=== PATIENT | male | born 1930 | race Caucasian/White ===

== ENCOUNTER 2019-09-30 13:25 | Inpatient (IN) | payer OTHER ==
[~2019-09-30] VITALS: Ht 180.3 cm; Wt 59.0 kg
[2019-09-30 13:28] VITALS: BP 158/74
[2019-09-30 14:21] LABS: URINE BILIRUBIN NEGATIVE (Negative); URINE BLOOD NEGATIVE (Negative); URINE CLARITY CLEAR; URINE COLOR YELLOW; URINE GLUCOSE-RANDOM* NEGATIVE (Negative); URINE KETONES NEGATIVE (Negative); URINE LEUKOCYTES-REFLEX 1+ (Negative); URINE NITRITE-REFLEX NEGATIVE (Negative); URINE PROTEIN (DIPSTICK) NEGATIVE (Negative); URINE UROBILINOGEN 0.2 E.U./dl (0.2-1.0)
[2019-09-30 14:23] LABS: ABSOLUTE NEUTROPHILS 5.5 thou/uL (1.4-8.2); BASOPHILS 0.9 % (0.0-2.0); EOSINOPHILS 0.7 % (0.0-3.0); HEMATOCRIT 36.9 % (42.0-52.0); HEMOGLOBIN 12.2 gm/dL (14.0-18.0); LYMPHOCYTES 12.9 % (24.0-44.0); MCH 32.1 pg (26.0-34.0); MCV 97.3 fL (80.0-100.0); MONOCYTES 5.7 % (1.0-8.0); PLATELET COUNT 308 thou/uL (150-400); POLYS 79.8 % (36.0-66.0); RBC 3.79 mil/uL (4.50-6.00); RDW 12.9 % (10.5-14.5)
[2019-09-30 14:29] LABS: MUCUS 0-3 Light strn/LPF (None Seen); SQUAMOUS 0-3 Few /LPF (0-3)
[2019-09-30 14:30] LABS: BACTERIA-REFLEX 1-9 Few /HPF (None Seen); CALCIUM OXALATE 0-3 Few /LPF (None Seen); CASTS None Seen /LPF (None Seen); URINE RBC 0-2 Rare /HPF (0-2); URINE WBC-REFLEX 6-15 Few /HPF (0-5)
[2019-09-30 14:53] LABS: CALCIUM 8.5 mg/dL (8.5-10.1); CREATININE 1.3 mg/dL (0.7-1.3); POTASSIUM 4.3 mmol/L (3.5-5.1)
[2019-09-30 14:56] LABS: ALBUMIN 2.7 g/dL (3.4-5.0); DIRECT BILIRUBIN < 0.1 mg/dL (<0.1-0.2); SGOT 25 U/L (15-37); SGPT 31 U/L (30-65); TOTAL BILIRUBIN 0.4 mg/dL (<0.1-1.0); TOTAL PROTEIN 7.5 g/dL (6.4-8.2)
[2019-09-30] MEDS ORDERED: TRIPLE ANTIBIOT28 G2 TOP (15:54)
[2019-09-30] MEDS ORDERED: CHOLECALCIFEROL1 GM PO (15:58)
[2019-09-30] MEDS ORDERED: ARICEPT10 M1 PO (16:00)
[2019-09-30] MEDS ORDERED: MUCINEX D ER 61 EACH PO (16:01)
[2019-09-30] MEDS ORDERED: ACIDOPHILUS1 EAC4 PO (16:03)
[2019-09-30] MEDS ORDERED: NAMENDA 10 MG T10 MG PO (16:05)
[2019-09-30] MEDS ORDERED: SEROQUEL 50 MG50 MG PO (16:06)
[2019-09-30] MEDS ORDERED: TRAZODONE HCL50 MG PO (16:08)
[2019-09-30 16:12] VITALS: BP 148/74
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
[2019-09-30 20:00] VITALS: BP 139/67
--- NOTE | 2019-10-01 04:10 | NUR ---
ASSUMED CARE OF PT AT 1900HRS. PT IS ALERT BUT ONLY ORIENTED TO SELF. PT IS UP AD TRI WITH A STEADY GAIT. IV ABX ADMINISTERED. PT DENES PAIN, NAUSEA OR SOA. PT HAD ELEVATED D-DIMER AND BIOENGINEER WAS NOTIFIED. PT WALKED HALLWAYS ALL NIGHT AND TRIED GOING INTO OTHER PT'S ROOMS SEVERAL TIMES. PT DID NOT SLEEP THIS SHIFT. NO AGGRESIVE BEHAVIOR NOTED. PT WAS ABLE TO TAKE ALL PO MEDS. SLEEP AIDS WERE NOT HELPFUL. VSS AND NO S/S OF ACUTE DISTRESS. WILL CONTINUE TO MONITOR.
[2019-10-01 07:01] LABS: FOLIC ACID 17.7 ng/mL (8.6-58.9)
[2019-10-01 08:55] VITALS: BP 133/75
--- NOTE | 2019-10-01 12:34 | EKG ---
[facility] [place] [address] ELECTROCARDIOGRAM REPORT Name: IRVING SAUCEDA Room #: 517-A ADM IN M.R.#: [id number] Admission: 09/30/19 Attend Phys: Facundo العلي DO Discharge: Date of : [birth year] Report #: [id number] THIS REPORT FOR: cc: LENA - No family physician/PCP LENA - No family physician/PCP Nathan Chatman MD [facility] ~ THIS REPORT FOR: //name// [facility] ED Test Date: 2019-09-30 Test Time: 14:10:20 Pat Name: IRVING SAUCEDA Department: Room: [facility] Gender: M Wire Spinner: DANIELLE : [phone] Requested By: Isabel Trotter Order Number: [id number] MD: Nathan Chatman Measurements Intervals Napoleon Rate: 61 P: 62 MI: 140 QRS: 42 QRSD: 86 T: 72 QT: 461 QTc: 465 Interpretive Statements Sinus rhythm Normal tracing No previous ECG available for comparison Electronically Signed On 09-30-2019 17:32:35 MANUFACTURING COORDINATOR by Nathan Chatman [email or web address] <ELECTRONICALLY SIGNED> By: Nathan Chatman MD, FAC 09/30/19 1732 1410 141 Nathan Chatman MD, [facility] /EPI
--- NOTE | 2019-10-01 13:26 | NUR ---
0700 ASSUMED CARE OF PATIENT. PATIENT UP AMBULATING IN GARCÍA AD TRI. 0820 PATIENT CONFUSED. WHEN SENIOR TECHNICAL BUSINESS ANALYST ASKS PATIENT QUESTIONS, PATIENT RESPONDS WITH UNRELATED ANSWER. PATIENT CONFUSED AND ORIENTED TO SELF. PATIENT NOTED TO ENTER IN OTHER PATIENT ROOMS. EASILY REDIRECTED. PATIENT WANDERS HALLS. LUNG SOUNDS CLEAR, BS ACTIVE X4, NO C/O PAIN, DENIES NEEDS. MEDS TAKEN WHOLE WITHOUT DIFICULTY. PATIENT LABILE AND CALM. WILL CONTINUE TO OBSERVE FOR BEHAVIORS.
[2019-10-01 19:41] VITALS: BP 166/77
[2019-10-01 22:59] VITALS: BP 166/77
--- NOTE | 2019-10-01 23:55 | NUR ---
PATIENT HAS BEEN BELLIGERANT AND INTRUSIVE WITH OTHERS. HE HAS BEEN HITTING AND AGGRESSIVE WITH STAFF AND PATIENTS. TRIED MANY TIMES TO REDIRECT AND TO FIND SOMETHING FOR HIM TO DO. SECURITY HAS BEEN CALLED 3 TIMES TO HELP WITH BEHAVIORS. ORDER RECEIVED BY DR ISRAEL FOR HALDOL 5MG IM. THIS WAS GIVEN AND PATIENT BECAME DROWSY AND SLEPT FOR 10 MINUTES. PATIENT REFUSING TO SIT AND JUST WANTS TO WANDER. PATIENT SPOKE WITH TONIGHT TO TRY AND CALM HIM WHICH WORKED FOR A LITTLE BIT. UNABLE TO PUT IV IN TO GIVE IVPB. CALLED AND RECEIVED ORDER FROM Scotty MCGEE NP FOR ROCEPHIN 1GM IM ONETIME. AWAITING FOR PHARMACY TO SEND UP. IVPB WAS NOT ALLOWING US TO SCAN THEM ALSO AND PHARMACY WAS TRYING TO FIGURE THIS OUT. IVPB NOT GIVEN AND WILL GIVE ROCEPHIN IM ONCE OBTAINED AND HELP CALLED TO GIVE INJECTION TO PATIENT. PATIENT STILL PACING HALLS.
--- NOTE | 2019-10-02 00:38 | NUR ---
PHARMACY CALLED THAT ROCEPHIN WAS ON LIFT. MED RETRIEVED AND ROCEPHIN 1GM IM GIVEN IN LEFT HIP WITH OUT ISSUE. PT LAYING DOWN AND TRYING TO REST. WILL CONTINUE TO MONITOR. BED ALARM ON AND BED IN LOW POSITION D/T SEDATION ISSUES AND SAFETY.
--- NOTE | 2019-10-02 03:30 | NUR ---
PATIENT UP WALKING HALLS. WENT AND USED FEMALE PATIENT'S BATHROOM. PT IS WITH PRODUCTIVE CLEAR COUGH. HE KEEPS SPITTING IN SINK AND ON THE NURSE STATION WINDOW SILL. PATIENT PUTTERING AROUND IN HIS ROOM. WILL NOT LAY DOWN. PATIENT NOT REDIRECTABLE. GAVE PATIENT A BOX OF KLEENEXES. PATIENT IN BEDROOM. CONTINUING TO MONITOR.
--- NOTE | 2019-10-02 04:38 | NUR ---
PATIENT HAS BEEN UP SINCE 3AM. HE CONTINUES TO PACE AND IS INCREASINGLY BECOMING MORE UNDIRECTABLE. POUNDING ON LOCKED DOORS, ENTERING PATIENT ROOMS, SPITTING WHEREEVER. CURSING AND YELLING. CALLED DR ISRAEL AND ORDER RECEIVED FOR HALDOL 5MG IM STAT. INJECTION GIVEN IN RIGHT ARM WITH 3 STAFF HOLDING PATIENT. PATIENT TOLERATED WELL AND CONTINUED TO PACE AND SEEMS IN HIS OWN LITTLE WORLD HE WALKS ABOUT THE UNIT. CONTINUING TO MONITOR FOR SAFETY. PATIENT AGGRESSIVE AND SWINGING WHEN TRYING TO REDIRECT HIM. TRIED TO OFFER HIM SOMETHING TO DRINK. HE REFUSES AND WILL NOT SIT DOWN.
--- NOTE | 2019-10-02 10:43 | NUR ---
Lying supine in bed, appears to sleep. Awakens easily. Calm but refuses to answer questions, stating, "Holy Hell", "You don't know anything" and using profanity and expletives when approached. Able to ambulate from bed to bathroom without difficulty. Compliant with AM meds with exception of lactobaccilus--took approxamately half mixed in fluid without difficulty before striking cup splashing it on floor and wall. No gestures/speech suggestive of SI/HI. Does not mention pain. Noncompliant with ultrasound of lower legs. Breath sounds clear t/o, bilaterally equal. Sporadic, nonproductive cough. Reg HR auscultated. Color pink pink with brisk capillary refill and palpable peripheral pulses. +2 pitting edema in ankles, R slightly greater than L. Yellow urine per toilet, voids independently. Active bowel sounds over soft, flat abdomen. When asked when his last bowel movement was he shouted, "None of your God damn business!" 1000 Up ambulating in halls and going into other patients rooms. Redirectable at this time. No s/o distress.
[2019-10-02 13:16] VITALS: BP 127/58; BP 127/61
--- NOTE | 2019-10-02 15:38 | NUR ---
REFUGIO spoke with pt's daughter Sarah yesterday who gave her some background. She said pt has resided at [facility] since 09/08/19. He also does not have sexual behaviors, and the NH he resides in misunderstands him. She said he did expose his penis not for sexual reasons, but because he was in a new place and needed to use restroom. REFUGIO contacted pt's Allie Patel at [phone]. She said she will be visiting with pt soon and will talk with SW then.
[2019-10-02 19:30] VITALS: BP 134/60
--- NOTE | 2019-10-02 22:49 | NUR ---
Care assumed of patient at 1915: Patient wandering about the halls at start of shift. Alert and oriented to person only. Confused and forgetful. Patient entering other peer rooms and pilfering through personal belongings. Required frequent re-direction. Patient allowed nurse to complete assessment. Denies pain or discomfort. Repetively asking for his . Needed frequent reminders that he is in the hospital. Took HS medication whole without difficulty. Donepezil requires clarification with MD, spoke with pharmacist. PO abx medication not available. Pharmacist notified. Patient continent of bladder. Patient was able to be assisted to bed with staff assist x1. Venous Doppler was able to be completed when in bed. Patient has 1+ pitting edema to bilateral lower extremities. Patient has perplexed affect when speaking with nurse. Will avoid eye contact. Patient denies SI/HI/AH/VH. No s/s of delusional or paranoia behaviors observed. Patient resistant to re-direction but has not been physically or verbally aggressive. Labile and irritable. Patient has been able to rest quietly in bed since a reasonable hour thus far this shift.
[2019-10-03 06:59] LABS: EOSINOPHILS 1.3 % (0.0-3.0); HEMATOCRIT 35.5 % (42.0-52.0); HEMOGLOBIN 11.6 gm/dL (14.0-18.0); LYMPHOCYTES 11.6 % (24.0-44.0); MCHC 32.7 g/dL (28.0-37.0); MCV 97.7 fL (80.0-100.0); MONOCYTES 6.4 % (1.0-8.0); PLATELET COUNT 286 thou/uL (150-400); POLYS 79.7 % (36.0-66.0); RBC 3.64 mil/uL (4.50-6.00); RDW 13.2 % (10.5-14.5); WBC 6.3 thou/uL (4.0-11.0)
[2019-10-03 07:25] LABS: ALBUMIN 2.5 g/dL (3.4-5.0); CALCIUM 8.1 mg/dL (8.5-10.1); POTASSIUM 4.2 mmol/L (3.5-5.1); TOTAL BILIRUBIN 0.4 mg/dL (<0.1-1.0); TOTAL PROTEIN 6.3 g/dL (6.4-8.2)
--- NOTE | 2019-10-03 07:36 | NUR ---
Pt in the day room this morning. He unzipped his pants, and pulled out his penis. He had a cup in his hand and he urinated in the cup. I tried to get him to come with me to his room. He stated "get away from me God Alfonzonit." Another staff member came to assist me in helping the patient.
[2019-10-03 08:42] VITALS: BP 127/58
--- NOTE | 2019-10-03 09:17 | NUR ---
HAS BEEN UP IN HALLWAYS AND DAYROOM SO FAR THIS AM. GAIT INITALLLY SLIGHTLY UNSTEADY BUT BRCOMES STROMGER DAY PROGRESSES.PERSONAL ALARM AND WALKER UTILIZED FOR FALL PREVENTION. COMPLIENT WUTH TAKING MEDICATIONS CRUSHED AND IN ICE CREAM AND APPLESAUCE AND DID TAKE WITHOUT DIFFICULTY. ORIENTED TO NAME ONLY TATIANA IGNACIO.
--- NOTE | 2019-10-03 13:51 | NUR ---
REFUGIO spoke with pt's and daughter Antonella last night. They said they are concerned about pt returning to [facility]. Allie () said that they were told that pt would have many activities to do, and the facility does not provide any. She also said that she get's calls every night from the facility asking her to calm pt down, or to come to the facility. She and Antonella said at this point they are interested in new placement. REFUGIO talked to them about 2 facilities she knows of that are private pay, and have accepted difficult pt's in the past. They also are small facilities that only accept 8 pt's at a time. They said they would like to look at those facilities and also some others they have decided to look at tomorrow. Today, REFUGIO spoke with Antonella who said they have been out looking at facilities. REFUGIO spoke with Lidia (DON) with [facility] [phone]. She gave background of pt and said that the family was given misinformation when their rep was screening the pt; she said had she the nurse done pt's assessment she would have denied him due to his aggressive behaviors especially with his . She said she has been in regular contact with his family and have explained this may not be the right placement for him. She said that pt pulls his penis out in front of staff, other residents, and their families. She said the family were initially told he was coming as skilled and not detention; their facility doesn't have skilled. She asked that REFUGIO sent updates to [phone]. REFUGIO faxed updates to info given. REFUGIO will continue to follow pt during his stay on this unit.
--- NOTE | 2019-10-03 16:04 | NUR ---
WILL OCCASSIONALLY ENTER PEER ROOMS TO LOOK OUT WINDOW OR IF HIS DOOR IS LOCKED. EASILY REDIRECTED SO FAR TODAY. NO PHYSICAL AGGRESSION/AGITATION NOTED OR REPORTED
[2019-10-03 19:15] VITALS: BP 113/72
--- NOTE | 2019-10-04 01:39 | NUR ---
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 HE WAS WANDERING INTO OTHER PATIENTS ROOMS. VERY DIFFICULT TO REDIRECT, STRIKING OUT AT STAFF WITH ATTEMPTED REDIRECTION. DR ISRAEL ON UNIT AND ORDERED PRN FOR AGGRESSION/AGITATION. SAME ADMINISTERED. EVENTUALLY PATIENT FORCIBLY ASSISTED TO BED, AFTER WHICH HE DID SLEEP SOME. UNCOOPERATIVE WITH ASSESSMENT PROCESS. PO MEDS GIVEN WITH MUCH ENCOURAGEMENT. WILL CONTINUE TO MONITOR
--- NOTE | 2019-10-04 01:47 | NUR ---
REFUSED ABD SCAN FOR URINE RESIDUAL
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
[2019-10-04 07:00] VITALS: BP 113/71
[2019-10-04 07:11] VITALS: BP 113/71
[2019-10-04 11:56] LABS: ABSOLUTE NEUTROPHILS 4.1 thou/uL (1.4-8.2); BASOPHILS 1.1 % (0.0-2.0); EOSINOPHILS 1.4 % (0.0-3.0); HEMATOCRIT 39.9 % (42.0-52.0); HEMOGLOBIN 12.7 gm/dL (14.0-18.0); LYMPHOCYTES 16.7 % (24.0-44.0); MCH 31.5 pg (26.0-34.0); MCHC 31.9 g/dL (28.0-37.0); MCV 98.8 fL (80.0-100.0); MONOCYTES 6.1 % (1.0-8.0); OBSERVED RETIC COUNT 1.03 % (0.6-2.6); PLATELET COUNT 326 thou/uL (150-400); POLYS 74.7 % (36.0-66.0); RBC 4.04 mil/uL (4.50-6.00); RDW 13.3 % (10.5-14.5); WBC 5.4 thou/uL (4.0-11.0)
[2019-10-04 12:11] LABS: % SATURATION 13 % (20-39); IRON 32 ug/dL (65-175); TIBC 239 ug/dL (250-450)
[2019-10-04 12:25] LABS: ALBUMIN 2.7 g/dL (3.4-5.0); CALCIUM 8.5 mg/dL (8.5-10.1); CREATININE 1.1 mg/dL (0.7-1.3); MAGNESIUM 2.3 mg/dL (1.8-2.4); POTASSIUM 4.3 mmol/L (3.5-5.1); TOTAL BILIRUBIN 0.5 mg/dL (<0.1-1.0); TOTAL PROTEIN 7.4 g/dL (6.4-8.2)
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
--- NOTE | 2019-10-04 14:40 | NUR ---
1145 Dr. Villalobos here assessing pt and speaking with daughters. Aware of irregular HR. Would like a bladder scan immediately after next void.
[2019-10-04 20:49] VITALS: BP 130/60
--- NOTE | 2019-10-05 04:00 | NUR ---
Assumed care of pt @ 1900. Pt calm et cooperative this shift. Pt easily redirected with no behaviors noted this shift. Pt took medications whole without difficulty. VSWNL. Health assessment with no abnormalities noted at present time. Ambulates the halls ad jeevan with only slight unsteadiness to gait. Currently resting in bed with eyes closed. Will continue to monitor per protocol.
[2019-10-05 07:27] VITALS: BP 91/59
--- NOTE | 2019-10-05 13:05 | NUR ---
1300 RESUMMED CARE FROM OVERNIGHT SHIFT, PATIENT UP IN DAY ROOM WAITING FOR BREAKFAST. PATIENT ATE ABOUT 30% OF HIS BREAKFAST, PATIENT TOOK MEDICATION WITHOUT INCIDENCE. PATIENT'S DAUGHTER AND CAME TO VISIT AND HAD QUESTIONS ABOUT PATIENT'S MEDICATION. I EXPLAINED THE MEDICATION WITH THE DAUGHTER, SHE IS CONCERNED THAT THE PATIENT 1 YEAR AGO WAS RUNNING 3 MILES A DAY. I EXPLAINED TO THE DAUGHTER THAT THINGS CHANGE WHEN YOU ARE GETTING OLDER. SHE WAS VERY RECEPTIVE WITH WHAT I EXPLAINED TO HER. PATIENT CALM STILL WONDERS IN OTHER PATIENT ROOMS AND WALKS THE HALLS. PATIENT DENIES ANY SI/HI OR VOICES, WILL CONTINUE TO MONITOR PATIENT FOR BEHAVIORS AND SAFETY.
[2019-10-05 20:13] VITALS: BP 118/42
--- NOTE | 2019-10-06 03:32 | NUR ---
2300 Ambulating through hallways, is an elopment risk, checking doors to try and open locked doors. Enters other patients rooms, and becomes physically resistant to redirection. 0030 urinated on the floor in the day room. Refused to allow staff to provide adl's, verbally agressive and resistant to care. Allowed self to be laid down, however would not take po medications as offered. 01:55 Awakened, confused and combatitive with care. Becomes physically and verbally resistant and combatitive when redirected out of other patient's rooms.
--- NOTE | 2019-10-06 04:49 | NUR ---
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 HAS SPENT EVENING WANDERING INTO OTHER PATIENTS ROOMS. VERY DIFFICULT TO REDIRECT. REQUIRING NEARLY SHERWIN TO ONE STAFF AT ALL TIMES.MINIMAL COOPERATION WITH ASSESSMENT PROCESS. DID TAKE MEDS CRUSHED IN ICE CREAM. INCONTINENT OF MODERATE AMT LOOSE STOOL THIS NIGHT. DID RECIEVE PRN MEDS AND FELL ASLEEP AFTERWARDS, WITH HELP OF SECURITY. NO APPARENT DISTRESS. NO C/O. WILL CONTINUE TO MONITOR
[2019-10-06 08:42] VITALS: BP 143/65
--- NOTE | 2019-10-06 13:46 | NUR ---
REFUGIO met with pt's 3 daughters and his for a family meeting since his daughter Antonio was present from out of town. SW answered their questions including about information reported to [facility] staff from his H&P. SW listened to their concerns. REFUGIO gave a couple tips on how they can look for placement for their father, if they so choose too, and then the other SW came in with more detail to assist. At this time, pt's family is unsure if they want to remain with [facility] or want to move him. They mentioned they wanted to speak with pt's psych. REFUGIO contacted pt's psych doctor and gave her the phone number to contact. SW team will continue to follow pt during his stay on this unit.
--- NOTE | 2019-10-06 15:25 | NUR ---
0715 ASSUMED CARE OF PATIENT. PATIENT NOTED WANDERING IN GARCÍA. 0850 PATIENT TAKING MEDS WHOLE WITH H20. NOTED THAT PATIENT TENDS TO COUGH AFTER DRINKING THIN WATER. WILL NOTIFY DR OF FINDING WITH DRINKING THIN LIQUIDS. DENIES PAIN . PATIENT RESTED QUIETLY IN CHAIR, MOVED TO BED AND RESTED QUIETLY FOR A SHOR TIME. OUT TO DAYROOM FOR VISITING WITH FAMILY AT 1045AM. DAUGHTERS HAD MULTIPLE QUESTIONS REGARDING BEHAVIORS IN THE NIGHT. CURTAIN STRETCHER ASSEMBLER EXPLAINED WHAT WAS REPORTED AND EXPLAINED FOR THE NEED FOR PRN MEDICATION THAT WAS GIVEN. FAMILY VOICED UNDERSTANDING. 1400 PATIENT NOTED WANDERING IN HALLS AND DAYROOM. 1545 PATIENT NOTED WITH EYES CLOSED LAYING DOWM ON COUCH IN DAYROOM.
--- NOTE | 2019-10-06 18:18 | NUR ---
PATIENT SITTING IN CHAIR WITH EYES CLOSED. WAKES UP WHEN NAME CALLED. MEDICATION TAKEN WHOLE WITH PUDDING WITHOUT DIFFICULTY AND WITHOUT COUGHING. TEACHER'S AIDE ASKS PATIENT IF HE NEEDS ANYTHING PATIENT DENIES NEEDS. WILL CONTINUE TO MONITOR.
[2019-10-06 19:30] VITALS: BP 110/58
--- NOTE | 2019-10-07 04:42 | NUR ---
Assumed care of pt @ 1900. Pt calm et cooperative with no behaviors noted this shift. Ambulates halls ad jeevan with steady gait. Took medications whole without difficulty. VSWNL. Health assessment with no abnormalities noted at present time. Denies SI/HI. Currently resting in bed with eyes closed. Went to bed at approximately 2100 this shift. Pt was easily redirected et fully cooperative this shift. Will continue to monitor per protocol.
[2019-10-07 09:25] VITALS: BP 102/48
[2019-10-07 10:55] VITALS: BP 102/48
--- NOTE | 2019-10-07 10:57 | NUR ---
PATIENT WAS UP AND OUT IN THE DAY ROOM WHEN CARE ASSUMED. PATIENT IS FORGETFUL, CONFUSED, WANDERS THE UNIT, REDIRECTS EASILY THOUGH. PATIENT TOOK ALL MORNING MEDICATION WHOLE WITHOUT DIFFICULTY. PATIENT IS EATING MEALS, AND DRINKING FLUID WELL. PATIENT DENIES SUICIDAL IDEATION, HE IS NOT ABLE TO APPROPRIATELY RESPOND TO FURTHER ASSESSMENT QUESTIONS DUE TO COGNITIVE IMPAIRMENT. PATIENT REQUIRES CUEING FROM STAFF TO EAT. NEED ASSIST OF STAFF WITH CERTAIN ADL INCLUDING TOILET HYGINE. DIET CHANGED TO MECHANICAL ALTERED, AND NECTAR THICK LIQUID DUE TO COUGHING DURING BREAKFAST. AFFECT IS FLAT, MOOD IS BLUNTED. NO AGITATION OR AGGRESSIVE BEHAVIOR NOTED AT THIS TIME. PATIENT CURRENTLY VISITING WITH . NO SIGN OF ACUTE DISTRESS SNOTED, WILL CONTINUE TO REDIRECT, AND MONITOR FOR SAFETY.
--- NOTE | 2019-10-07 14:09 | NUR ---
RT Progress Note- Patient continues to wander unit each day. He has most recently been able to tolerate sitting with peers during group without displaying restless behaviors, though he is often sleeping during this time. Continue current goal - decrease wandering.
[2019-10-07 19:25] VITALS: BP 109/72
--- NOTE | 2019-10-07 21:48 | NUR ---
1915 Assumed care of patient. Pt. up wandering hallway with a female resident by his side. Pt. continues walking in and out of other patient's room. He can in the short-term be redirected but then resumes same behavior. He became verbally aggressvive while attempting to redirect. 2030 Pt. was uncooperative with taking meds. He needed much redirection, and continual encouragement. He eventually took meds with applesauce and was hostile when trying to assist him. No coughing or choking noted after taking meds with applesauce. Pt. drank a cup of thin liquids with applesauce and meds. No choking or coughing noted after drinking thin liquids. Assessment done.
[2019-10-07 22:13] VITALS: BP 109/72
--- NOTE | 2019-10-08 00:30 | NUR ---
0015 Pt. continues to get up and roam in and out of other patient's room. Pt. because aggressive when attempting to put him back in bed. He is also cursing at this nurse. Zyprexa 5 mg. given IM to right upper bottocks.
[2019-10-08 07:40] VITALS: BP 145/72
--- NOTE | 2019-10-08 10:28 | NUR ---
0715 ASSUMED CARE OF PATIENT. 0730 PATIENT AMBULATED TO DAY ROOM WITH STEADY GAIT. PATIENT WANDERING GARCÍA BEFORE BREAKFAST 0800 PATIENT SITTING AT TABLE IN DAY ROOM EATING BREAKFAST. MEDICATIONS GIVEN WITH PUDDING, TAKEN WITHOUT DIFFICULTIES. 0850 PATIENT IN DAYROOM WITH EYES CLOSED. WILL CONTINUE TO OBSERVE
--- NOTE | 2019-10-08 15:05 | NUR ---
PATIENT SITTING IN CHAIR IN DAYROOM AT THIS DAY. PATIENT WAS FOUND EARLIER BY STAFF URINATING IN STAFF OFFICE. WHEN ATTEMPTING TO ASSIST PATIENT TO BATHROOM PATIENT GETS AGGRESSIVE AND UNABLE TO GET PATIENT TO VOID ON A REGULAR BASIS. WILL CONTINUE TO OBSERVE AND MONITOR FOR SAFETY
[2019-10-08 19:31] VITALS: BP 143/63
[2019-10-08 19:53] VITALS: BP 143/93
--- NOTE | 2019-10-08 22:59 | NUR ---
1845 RESUMMED CARE FROM DAY SHIFT, PATIENT WANDERING AROUND THE HALLS TRYING TO GET OUT, PATIENT ALSO GOES INTO OTHER PATIENTS ROOMS. PATIENT HAD PANTS DOWN WENT INTO 520 B TO USE BATHROOM. PATIENT ESCORTED OUT OF ROOM AND ALL PATIENTS DOORS ARE KEPT CLOSED FOR SAFETY AND TO KEEP PATIENT OUT OF OTHER PATIENT'S ROOMS. PATIENT ALERT AND ORIENTED TO SELF, PATIENT HAS BOWEL SOUNDS TIMES ALL 4 QUADRANTS. LUNGS CLEAR. PATIENT IRRITATED ABOUT TAKING MEDICATION, BUT EVENTLY TOOK MEDS CRUSHED IN APPLESAUCE. PATIENT QUIET AND CONTINUES TO WANDER WILL CONTINUE TO MONITOR FOR BEHAVIORS AND SAFETY.
[2019-10-09 09:09] VITALS: BP 129/72
--- NOTE | 2019-10-09 11:11 | NUR ---
Lying supine in bed incontinent of large amt yellow urine and brown stool. No s/o distress, awakens easily. Confused speech with occassional yelling. Orientated to name only. Alert, no speech or actions suggestive of SI/HI. Requiring some redirection. Able to brush teeth independently when handed toothbrush with paste. Breath sounds clear t/o, bilaterally equal. Reg HR auscultated. Color pink with brisk capillary refill and palpable peripheral pulses. +1 edema in lower extremities. Yellow urine per bed and toilet. Active bowel sounds over soft, flat abdomen. Smear of stool around anus, stool also per toilet. Initially resistant to taking meds but took with moderate encouragement. 2 cm skin tear to L elbow with dried blood. Will photograph and clean. 1100 Sleeping soundly in bed when here for visiting hours. Resistant to redirection but did get up and ambulate to dining room. Remained standing for approximately 10 min before sitting at table. Currently sitting at table with drinking Ensure. Dr. Almazan speaking with .
--- NOTE | 2019-10-09 12:58 | NUR ---
REFUGIO received a vm from Antonella asking if she or her mom can have a copy of pt's H&P. REFUGIO discussed this with pt's that the family must get a copy of this from medical records. REFUGIO also left this information on Antonella's vm. SW team will continue to follow pt during his stay on this unit.
--- NOTE | 2019-10-09 16:27 | NUR ---
REFUGIO faxed updates to [facility]. REFUGIO team will continue to follow pt during his stay on this unit.
[2019-10-09 16:35] LABS: URINE BILIRUBIN NEGATIVE (Negative); URINE BLOOD 3+ (Negative); URINE CLARITY SL CLOUDY; URINE COLOR YELLOW; URINE GLUCOSE-RANDOM* NEGATIVE (Negative); URINE KETONES TRACE (Negative); URINE LEUKOCYTES 2+ (Negative); URINE NITRITE NEGATIVE (Negative); URINE PROTEIN (DIPSTICK) NEGATIVE (Negative); URINE SPECIFIC GRAVITY 1.025 (1.005-1.035); URINE UROBILINOGEN 0.2 E.U./dl (0.2-1.0)
[2019-10-09 16:43] LABS: SQUAMOUS 0-3 Few /LPF (0-3); YEAST Present (None Seen)
[2019-10-09 16:44] LABS: BACTERIA 1-9 Few /HPF (None Seen); CASTS None Seen /LPF (None Seen); CRYSTALS None Seen /LPF (None Seen)
--- NOTE | 2019-10-10 04:18 | NUR ---
Assumed care of pt @ 1900. Pt calm et cooperative this shift. Slight agitation early in shift but was able to redirect. Ambulates the halls ad jeevan with steady gait. Took medicationa whole without difficulty. VSWNL. Health assessment with no abnormalities other than previously noted. Denies SI/HI. Currently resting in bed with eyes closed. Will continue to monitor per protocol.
[2019-10-10 09:18] VITALS: BP 111/45
--- NOTE | 2019-10-10 15:05 | NUR ---
1400 PATIENT NOTED WITH STOOL ON HIS HAND AFTER HIS HANDS WERE IN HIS PANTS. PATIENT WAS IN THE DAYROOM DURING THIS TIME. DR HOGAN AND DOG FOOD SHREDDER OPERATOR ASSISTED HIM TO THE ROOM AND WAS CLEANED UP. PATIENT CONTINUES TO WANDER HALLWAYS AND DAYROOM. WILL CONTINUE TO OBSERVE
--- NOTE | 2019-10-10 15:20 | NUR ---
0700 ASSUMED CARE OF PATIENT. PATIENT IN BED SLEEPING AT THIS TIME. 0900 PATIENT CONTINUES TO SLEEP. AT 1030 PATIENT IS AWAKE AND TO DAYROOM AT THIS TIME. PATIENT SITS AT TABLE AND EATS A FEW BITES OF BREAKFAST. MEDICATIONS GIVEN CRUSHED IN PUDDING WITHOUT DIFFICULTY. PATIENT WANDERS IN HALLWAY AND DAYROOM. ALSO NOTED EXIT SEEKING AT ENTRY DOORS AND LOOKING FOR OPEN DOORS. SOMETIMES ITS EASY TO REDIRECT AND OTHER TIMES ITS NOT SO EASY TO REDIRECT PATIENT.
--- NOTE | 2019-10-10 18:50 | NUR ---
PATIENT REFUSED MEDICATION. ATTEMPTED TO GIVE IN PUDDING CRUSHED AND BECAME AGGITATED. WILL ATEMPT TO GIVE LATER.
[2019-10-10 19:49] VITALS: BP 123/61
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
--- NOTE | 2019-10-10 21:45 | NUR ---
Patient was up pacing halls, disrupting other peers who were trying to sleep. Required constant re-direction. At approximately 2130, patient was banging on the door to room 519. Staff attempted to re-direct patient away from the door due to waking up peers. Attempted to offer snack, re-orient to location, escort him to his room, offered diversion activity. None of which were helpful. Patient then started to grab the door handle of 519, pulling, pushing, banging. Nurse was able to remove patients hand from the door handle but at the same time, patient took his other hand and grabbed nurses throat. Nurse was able to remove patient's hand and call for help. Patient then assisted to his room with staff assist x3.
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
[2019-10-11 06:50] LABS: ABSOLUTE NEUTROPHILS 3.6 thou/uL (1.4-8.2); BASOPHILS 1.3 % (0.0-2.0); EOSINOPHILS 1.7 % (0.0-3.0); HEMATOCRIT 40.5 % (42.0-52.0); HEMOGLOBIN 13.1 gm/dL (14.0-18.0); LYMPHOCYTES 18.8 % (24.0-44.0); MCH 31.7 pg (26.0-34.0); MCHC 32.4 g/dL (28.0-37.0); MCV 97.9 fL (80.0-100.0); MONOCYTES 11.3 % (1.0-8.0); PLATELET COUNT 261 thou/uL (150-400); POLYS 66.9 % (36.0-66.0); RBC 4.14 mil/uL (4.50-6.00); RDW 13.8 % (10.5-14.5); WBC 5.4 thou/uL (4.0-11.0)
[2019-10-11 07:10] LABS: ALBUMIN 2.8 g/dL (3.4-5.0); CALCIUM 8.5 mg/dL (8.5-10.1); POTASSIUM 4.1 mmol/L (3.5-5.1); TOTAL BILIRUBIN 0.4 mg/dL (<0.1-1.0); TOTAL PROTEIN 7.1 g/dL (6.4-8.2)
[2019-10-11 08:10] VITALS: BP 115/79
[2019-10-11 08:15] VITALS: BP 115/79
--- NOTE | 2019-10-11 18:11 | NUR ---
1500 RESUMMED CARE FROM OVERNIGHT SHIFT, PATIENT WAS SEDATED THIS AM FROM PRN'S THAT WERE GIVEN ON RENEWALS MANAGER. I DID NOT GIVE PATIENT MORNING MEDICATION DUE TO BEING SEDATED. PATIENT GOT UP FOR LUNCH AND WAS LESS SEDATED, HE HAD A VISIT FROM HIS . PATIENT DID NOT INTERACT WITH FOR THE ENTIRE VISIT. PATIENT'S LUNGS CLEAR, BOWEL SOUNDS PRESENT, PATIENT CAN ANSWER SIMPLE QUESTIONS. HE SAID NO TO HARMING SELF OR PATIENTS, I NOTICED PATIENT HOLDING LEFT SIDE AT TIMES. I CHECKED FOR BRUISING AND PALPATED AREA, NO BRUISING WAS FOUND OR SWELLING. I CALLED DR CARDONA AND LET HIM KNOW ABOUT THE PATIENT'S LEFT SIDE. HE SUGGESTED TYLENOL IF PATIENT IS COMPLAINING OF PAIN. PATIENT HAD SECOND VISIT WITH AND DAUGHTERS, THE VISIT WENT MUCH BETTER THAN THE MORNING VISIT. WILL CONTINUE TO MONITOR PATIENT FOR BEHAVIORS AND SAFETY.
[2019-10-11 20:28] VITALS: BP 140/66
--- NOTE | 2019-10-12 04:08 | NUR ---
Assumed care of pt @ 1900. Pt calm et cooperative at beginning of shift. Pt took medications whole without difficulty. Ambulates halls ad jeevan with steady gait. Pt became agitated around midnight when awakened to change soiled briefs. Security had to be called so that we could change his brief et pants. Pt then ambulated the halls for approximately one et a half hours before this nurse could coax him back into bed. VSWNL. health assessment with no abnormalities noted other than previously documented. Denied SI/HI. Currently resting in bed with eyes closed. Will continue to monitor per protocol.
[2019-10-12 09:09] VITALS: BP 99/61
--- NOTE | 2019-10-12 10:08 | NUR ---
REFUGIO contacted pt's daughter Antonella and provided her an update. She said things do not appear to be working with [facility], so they plan on reaching out to a couple smaller NH facilities. REFUGIO told her she will provide a listing of NH in their area when her mother comes to visit pt this morning. SW team will continue to follow pt during his stay on this unit.
--- NOTE | 2019-10-12 15:18 | NUR ---
Assumed care at 0700. patient awake and pacing around the activity room. Patient ate a liitle bit of breakfast, but he had substantial amount of food during lunch tiem. The visited and he was pleasant to her. Denies SI/HI. Raises the voice if you insist on something driss doesn't want. Patient complains of left shiv pain around the ribs. Dr. Hernandez assessed and prescribed Diclofenac gel because Tylenol was not helping much. patient sat for group participation but fell asleep there. Will continue with the plan of care.
[2019-10-12 19:32] VITALS: BP 123/57
--- NOTE | 2019-10-13 03:43 | NUR ---
Assumed care of pt @ 1900. Pt calm et cooperative this shift. No behaviors noted. Took medications crushed in pudding without difficulty. Ambulates the halls ad jeevan with steady gait. VSWNL. Health assessment with no abnormalities other than previously noted. Denies SI/HI. Continues to have somewhat garbled speech when speaking with staff or peers. Slight agitation noted after taking medication but pt was easily redirected. Currently resting in bed with eyes closed. Will continue to monitor per protocol.
--- NOTE | 2019-10-13 08:26 | NUR ---
Sw completed chart review and pt is no longer using prns and is meds compliant. Pt would likely be able to d/c this week pending placement.
--- NOTE | 2019-10-13 12:27 | NUR ---
REFUGIO sent referal to Tori at [facility] per family request.
--- NOTE | 2019-10-13 12:30 | NUR ---
Pt's PCP is Dr Rivas [phone].
--- NOTE | 2019-10-13 14:38 | NUR ---
Assumed care at 0700. Patient Awake and alert. Pacing around the activity room. Slept during group therapy today. He didn't eat much breakfast but he had good lunch. Patient relaxing at the activity room this afternoon. No SI/HI.When he walks around he enters pt rooms if they are open. One patient shouted at him and he shouted back but he became calm immediately. Will continue to monitor.
[2019-10-13 19:31] VITALS: BP 120/56
--- NOTE | 2019-10-13 23:14 | NUR ---
RESTLESS AND PACING HALLWAYS AT START OF SHIFT-REQUIRED REDIRECTION FROM STAFF SEVERAL TIMES D/T INTRUSIVE BEHAVIOR WITH PEERS IN DAYROOM-PICKING UP THEIR DRINKS OR TOUCHING THEM,TRYING TO HELP THEM. WILL BECOME VERBALLY AGITATED WITH REDIRECT RAISING VOICE AND SWEARING, NO PHYSICALLY COMBATIVE BEHAVIOR- ENTERING PEERS ROOMS AND AT ONE POINT WAS SHOVING AGAINST DOOR TO GET INTO A PEERS ROOM WHEN STAFF CLOSED DOOR.YELLING THROUGH CLOSED DOOR LOOKING FOR "RICKY" GAIT STEADY WITHOUT ASSISTIVE DEVICES. DID TAKE PM MEDICATIONS CRUSHED AND IN ICE CREAM.
[2019-10-14 08:16] VITALS: BP 141/61
[2019-10-14 09:17] VITALS: BP 141/61
--- NOTE | 2019-10-14 11:05 | NUR ---
Date of Admission: 09/30/19 Date of Activity Therapy Assessment: 10/03/19 Activity Goal: Decrease wandering Initial Goal: 1 Individual activity/day Weekly progress towards goal: Did not achieve goals Group participation level: None Behaviors observed: Pt continues to wander unit and is overall difficult to redirect from exits or other patient rooms. Pt is difficult to engage socially. Plan: No change towards goal
--- NOTE | 2019-10-14 12:41 | NUR ---
1238 RESUMMED CARE FROM OVERNIGHT SHIFT, PATIENT IN DAY ROOM WALKING AROUND. PATIENT ATE BREAKFAST, TOOK MEDICATION CRUSHED IN INSURE PUDDING WITHOUT INCIDENCE. PATIENT CALM NOT COMBATIVE EASILY REDIRECTS, PATIENT ANSWER YES AND NO QUESTIONS. PATIENT HAS SOME CONFUSION CAME TO SEE PATIENT VISIT WENT WELL. WE ARE GOING TO ATTEMPT TO SHAVE PATIENT, WHEN ASKING PATIENT ABOUT SI/HI/AH/VH NO SPEECH OR GESTURES. WILL CONTINUE TO MONITOR PATIENT FOR SAFETY AND BEHAVIORS.
--- NOTE | 2019-10-14 15:20 | NUR ---
REFUGIO spoke with Antonella about placement. She said she toured [facility] yesterday and that is promising. They also are considering [facility] REFUGIO asked Antonella to let her know if she would like a referral sent to [facility]. REFUGIO provided Antonella an update on pt. REFUGIO team will continue to follow pt during her stay on this unit.
[2019-10-14 19:18] VITALS: BP 103/67
[2019-10-14 21:00] VITALS: BP 103/67
--- NOTE | 2019-10-15 01:00 | NUR ---
Assumed care of patient this pm. Patient is up wandering/exploring the unit. Patient appears to be in good spirits. Patient is confused. Patients affect is mostly flat but occasionally he smiles. Patient goes often to other rooms and doors and tries to open them. Patient also wonders into open rooms. Patient has tried to open the main doors several times that lead off the unit. Patients vital signs are stable. Patient denies hi/si. Patient denies pain. Patient ambulates without assistance. Patient takes medications crushed in pudding. Patient redirects easily. Patients assessment shows clear breath sounds, active bowel sounds, and s1 s2 heard with auscultation. At 0100 patient is still awake. Patient also picked at his nose and caused some bleeding. Patient was encouraged not to put his finger so far into his nose to keep from irritating the nare and causing bleeding. Will continue to monitor.
--- NOTE | 2019-10-15 08:27 | NUR ---
Sw completed chart review and met with pt while he was wandering on the unit. pt was pleasant and easily redirected. 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 Pt is making gains and will be ready to d/c once placement is established.
--- NOTE | 2019-10-15 09:03 | NUR ---
0700 ASSUMED CARE OF PATIENT. PATIENT ASLEEP IN BED AT THIS TIME 0745 PATIENT WANDERING IN GARCÍA AND DAYROOM. PATIENT REFUSING MEDS THIS AM WILL CONTINUE TO ATEMPT.
[2019-10-15 09:18] VITALS: BP 120/79
--- NOTE | 2019-10-15 12:23 | NUR ---
VISITED FOR LUNCH. PT FEEDING SELF. PT TOOK MEDS AT THIS TIME WITH SOFTEN MAGIC CUP ICE CREAM. PT FINISHED OFF ICE CREAM CUP.
--- NOTE | 2019-10-15 14:21 | NUR ---
REFUGIO received a call from Antonella who asked for updates on pt. REFUGIO provided them including the fact that pt has not gotten an IM recently. REFUGIO asked Antonella if it would be okay to send updates to [facility], and she said it is. Antonella said her mother is also interested in [facility] and the [facility]. She said she would like REFUGIO to go ahead and send referrals to that those facilities as well. REFUGIO team will continue to follow pt during her stay on this unit.
[2019-10-15 19:37] VITALS: BP 134/59
--- NOTE | 2019-10-16 04:08 | NUR ---
Assumed care of pt @ 1900. Pt calm et cooperative this shift with no agitation noted. Took medication crushed in pudding without difficulty. Ambulates the halls ad jeevan with steady gait. Denies SI/HI at present time. VSWNL. Health assessment with no abnormalities noted at present time. Socialized with this nurse briefly before moving further down the [place]ancock earlier in the shift. Currently resting in bed with eyes closed. Will continue to monitor per protocol.
--- NOTE | 2019-10-16 07:58 | NUR ---
0700 ASSUMED CARE OF PATIENT. PATIENT IN BED AT THAT TIME. 0715 PATIENT UP, STANDING IN GARCÍA AT NURSES STATION QUIETLY. DOES NOT WANT TO COME TO DAYROOM TO SIT DOWN. WILL CONTINUE TO OBSERVE FOR BEHAVIORS
[2019-10-16 08:32] VITALS: BP 119/56
--- NOTE | 2019-10-16 12:25 | NUR ---
REFUGIO contacted the [facility] to speak to admissions about the referral she sent yesterday. She was told everyone was in a meeting. REFUGIO lft msg with switchboard receptionist. REFUGIO contacted [facility] to follow up on the referral sent yesterday. She spoke with the Admissions team who said they are not a locked unit.
--- NOTE | 2019-10-16 17:37 | NUR ---
WAS HERE TO VISIT. APPOLIGIZES FOR PATIENT BEHAVIOR. PATIENT GETTING UPSET WITH TICKET WORKER WHEN MEDICATION BEING GIVEN. PATIENT ATE SOME OF HIS DINNER AND A FEW BITES OF HIS MAGIC CUP. MEDICATIONS GIVEN CRUSHED IN MAJIC CUP. PATIENT UP AMB IN GARCÍA LOOKING TO EXIT UNIT. PATIENT REDIRECTABLE AT TIMES AND NOT SO REDIRECTABLE AT OTHER TIMES.
[2019-10-16 20:00] VITALS: BP 142/53
--- NOTE | 2019-10-16 23:02 | NUR ---
Care assumed of patient at 191: Patient up ad jeevan at start of shift. Ambulating about the halls, rooms, exit seeking. Patient difficult to re-direct. Restless. Presents with flat affect, perplexed look. Denies pain or discomfort. Took HS medication whole without difficulty. Ate 100% HS snack of ice cream independently. Did need re-direction to sit and finish snack. Patient continued to restless but was less intrusive once peers went to bed. Rounds completed at 2229, noted patient had been incontinent of bowel and bladder. Patient had brief off and in the toilet. Appeared as though he was trying to rinse it out. Patient became agitated and angry with staff that were attempted to help him. Patient then started to swing arms toward staff. Security notified to assist with cleaning and changing patient. Clothing changed and bed bath completed with staff x4. Verbally aggressive, threatening to hit, resistant of help. Appeared as though he didn't understand why staff was offering to help and the extent of how dirty he was. Cares completed and patient is now seated on his bed. Patient has not been to sleep yet this shift.
--- NOTE | 2019-10-17 10:52 | NUR ---
Dipti spoke with adriana ramirez and she requested that referral be sent to the memory care unit at [facility]. DIPTI called and confirmed they had a secure unit and sent the fax to [phone]
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
--- NOTE | 2019-10-17 13:45 | NUR ---
Patient picked up a dinning room chair. Dr. العلي saw the situation I followed him. The sales and marketing specialist and DR. العلي were trying to get him to put down the chair. Security was called. We loosened his trolley collector and got the chair from him. Dr. العلي escorted the patient to the quiet room. The patient was cussing the enitre time. Dr. العلي called Dr. Almazan. Staff is in the outter room monitoring the patient. Dr. العلي entered an order for seculsion.
--- NOTE | 2019-10-17 14:09 | NUR ---
1355 patient was calm and cooperative, he was removed from the seclusion room.
--- NOTE | 2019-10-17 14:11 | NUR ---
[facility] declined this pt due to behaviors.
--- NOTE | 2019-10-17 14:50 | NUR ---
Dipti recieved a call from danyel at [facility] and is interested in this pt for placement. DIPTI called Cameron of and left a message [facility]
--- NOTE | 2019-10-17 15:48 | NUR ---
[facility] of [facility] declined this pt. Sw reported this to DPOA
--- NOTE | 2019-10-17 16:04 | NUR ---
REFUGIO spoke with Antonella regarding the declined placements and provided encouragement and guidance to call Tori at [facility].
[2019-10-17 21:19] VITALS: BP 100/50
--- NOTE | 2019-10-17 22:10 | NUR ---
Care assumed of patient at 1915: Patient seated in dayroom at start of shift. Patient alert and oriented to person only. Patient restless, wandering about the dayroom and hallways. Confused and forgetful. Exit seeking at times. Took HS medication crushed without difficulty. Declined to eat any further snack. Denies pain or discomfort. Speech disorganized. Flight of ideas, difficulty with comprehensive of tasks. Nurse attempted to assist patient to the bathroom. Patient became irritable and frustrated with nurse, gritting his teeth. Cursed and made threatening statements but was not physically aggressive. Patient did show frustration towards another peer by trying to move her w/c and assist her with something. Unable to understand what patient was communicating. No s/s of delusional or paranoia behaviors observed. No signs of SI/HI/AH/VH. Patient continues to pace dayroom and hallways at this time.
[2019-10-18 09:06] VITALS: BP 89/51
[2019-10-18 09:25] VITALS: BP 89/51
--- NOTE | 2019-10-18 09:37 | NUR ---
ASSUMED CARE AT 0700 THIS MORNING. PT. AWAKE AND ROMING THE HALLWAY. HE SAT DOWN FOR A BIT AND ALLOWED THIS PARTITION ASSEMBLER TO DO AN ASSESSMENT ON HIM. HE DOES NOT FEED HIMSELF WELL AND NEEDS HELP EATING HIS MEALS. HIS MEDICATIONS WERE CRUSHED AND PUT IN APPLESAUCE, WHICH HE ATE WITHOUT PROBLEMS NOTED. HE REFUSED THE DECLOFENAC CREAM HE RESISTED ANYONE TOUCHING HIM. HE SAT DOWN IN A RECLINING CHAIR. ANOTHER PATIENT WOKE HIM UP "SO HE WOULD NOT HIT HIS HEAD ON THE ARM OF THE CHAIR" WHEN HE FELL ASLEEP. PT. REFUSED TO SIT DOWN AFTER BEING AWAKENED. HE RESUMED PACING IN THE HALLS.
[2019-10-18 19:21] VITALS: BP 91/45
--- NOTE | 2019-10-18 20:29 | NUR ---
Care assumed of patient at 1915: Patient pacing about the dayroom at start of shift. Patient alert and oriented to person only. Speech garbled at times but clear at other times. Having disorganized thoughts. Attempting to carry chairs round, move others in their w/c's, move tables. No s/s of pain or discomfort observed. Topical Diclofenac applied per MD order. Took HS medication crushed without difficulty. Ate approximately 10% of applesauce cup. Patient incontinent of bladder at this time. Unable to collect UA specimen. Patient irritable and agitated when being re-directed. Gritting teeth, "I'm gonna get you!". Patient confused and forgetful. Patient currently seated in recliner in dayroom. Appears to be resting but is waking up off and on to look at magazine that he is holding.
[2019-10-18 22:05] VITALS: BP 151/73
[2019-10-18 23:05] VITALS: BP 124/55
[2019-10-19 01:23] LABS: URINE BILIRUBIN NEGATIVE (Negative); URINE BLOOD NEGATIVE (Negative); URINE CLARITY CLEAR; URINE COLOR YELLOW; URINE GLUCOSE-RANDOM* NEGATIVE (Negative); URINE KETONES TRACE (Negative); URINE LEUKOCYTES-REFLEX NEGATIVE (Negative); URINE NITRITE-REFLEX NEGATIVE (Negative); URINE PROTEIN (DIPSTICK) 2+ (Negative); URINE SPECIFIC GRAVITY 1.025 (1.005-1.035); URINE UROBILINOGEN 0.2 E.U./dl (0.2-1.0)
[2019-10-19 01:46] LABS: AMORPHOUS URATES Few /LPF (None Seen); BACTERIA-REFLEX None Seen /HPF (None Seen); CRYSTALS None Seen /LPF (None Seen); HYALINE CASTS 4-10 Moderate /LPF (None Seen); MUCUS 4-6 Moderate strn/LPF (None Seen); SQUAMOUS 0-3 Few /LPF (0-3); URINE RBC None Seen /HPF (0-2); URINE WBC-REFLEX None Seen /HPF (0-5)
[2019-10-19 06:24] VITALS: BP 103/46
[2019-10-19 09:04] VITALS: BP 103/46
--- NOTE | 2019-10-19 09:16 | NUR ---
ASSUMED CARE AT 0700 THIS MORNING. PT. WAS SITTING IN A W/C. HE WAS SLIDING OUT ONTO THE FLOOR. STAFF INTERVENED AND PLACED HIM IN A RECLINING CHAIR WITH A LAP DUSTIN ON. AFTER BREAKFAST, HE SLID DOWN AND WAS WIGGLING OUT OF THE CHAIR. STAFF INTERVENED AGAIN. STAFF WALKED PT. AROUND THE UNIT FOR EXERCISE. HIS SPEACH IS GARBLED AND MAKES LITTLE SENSE UNLESS HE IS UPSET. THEN HE CURSES PLAINLY AT STAFF. HIS LIPS AND THE INSIDE OF HIS MOUTH HAD DRIED BLOOD IF HE BIT THE INSIDE OF HIS LIP OR HIS TONGUE. HIS MOUTH WAS CLEANED UP WITH TOOTHETTE AND WATER. KEAGAN ROJAS NP WAS ALSO NOTIFIED. LUNGS CTA, ABD SOFT, DENIES PAIN.
[2019-10-19 19:33] VITALS: BP 89/44
[2019-10-19 20:00] VITALS: BP 99/47
[2019-10-19 21:20] VITALS: BP 116/61
[2019-10-19 21:40] VITALS: BP 116/61
--- NOTE | 2019-10-20 01:07 | NUR ---
PATIENT HAS BEEN IN A RECLINER IN THE DINING ROOM MOST OF SHIFT. HE HAS BEEN TOILETED REGULARLY AND IS INCONTINENT. HE DOES HAVE A LAPBUDDY ON. PATIENT HAS LOW BP AND HAVE MONITORED IT CLOSELY. WAS 89/44. WENT UP TO 116/61 WHEN GIVING HS MEDS. PATIENT HAS BEEN QUIET AND SLEEPING WHEN NOT BOTHERED. PATIENT YELLS AND CURSES AND IS RESISTIVE WITH CARES BUT CALMS RIGHT BACK DOWN. PATIENT IS SLEEPING IN RECLINER IN DINING ROOM AT THIS TIME. HE IS BEING CLOSLEY MONITORED FOR SAFETY BY THIS NURSE AND THE INSTITUTIONAL NUTRITION CONSULTANT'S THAT ARE IN THE SAME ROOM WITH HIM. WILL CONTINUE TO MONITOR.
[2019-10-20 07:49] VITALS: BP 103/52
--- NOTE | 2019-10-20 08:47 | NUR ---
Sw Complted chart review and pt is chronically agitated and aggressive with staff. Now in a lap bonny for safety. D/C is guarded and limited placement provided by family.
--- NOTE | 2019-10-20 09:16 | NUR ---
ASSUMED CARE AT 0700 THIS MORNING. PT. SOMNOLENT IN THE RECLINING CHAIR. HE WAS AWAKENED FOR BREAKFAST, BUT KEPT FALLING ASLEEP. HE DID MANAGE TO EAT A PORTION OF HIS MEAL. HE TOOK HIS MEDICATIONS, CRUSHED, IN PUDDING WITH MUCH PERSUASION.
--- NOTE | 2019-10-20 11:26 | NUR ---
Nutrition: pt with 6 meals refusals in past 3 days. Continued weight loss, total of 7% past 14 days. Consider trial appetite stimulant. If po does not improve may need to consider nutrition support.
[2019-10-20 15:54] LABS: CALCIUM 9.4 mg/dL (8.5-10.1); POTASSIUM 4.9 mmol/L (3.5-5.1); TOTAL BILIRUBIN 0.5 mg/dL (<0.1-1.0); TOTAL PROTEIN 6.9 g/dL (6.4-8.2)
[2019-10-20 20:15] VITALS: BP 149/55
[2019-10-20 21:50] VITALS: BP 157/76
[2019-10-20 22:00] VITALS: BP 157/76
[2019-10-20] MEDS ORDERED: VOLTAREN GEL 1100 G2 TOP (23:30)
[2019-10-20] MEDS ORDERED: TRAZODONE HCL50 MG PO (23:30)
[2019-10-20] MEDS ORDERED: RISPERIDONE 1 MG1 MG PO ×2 (23:30)
[2019-10-20] MEDS ORDERED: BANOPHEN25 M1 PO (23:30)
[2019-10-20] MEDS ORDERED: OLANZAPINE10 M2 IM (23:30)
[2019-10-20] MEDS ORDERED: OLANZAPINE ODT5 MG PO (23:30)
[2019-10-20] MEDS ORDERED: TYLENOL325 MG PO (23:30)
[2019-10-20] MEDS ORDERED: TRAZODONE HCL100 MG PO (23:30)
[2019-10-20] MEDS ORDERED: DEPAKOTE SPRIN125 MG PO (23:30)
[2019-10-20] MEDS ORDERED: FLOMAX0.4 MG PO (23:30)
--- NOTE | 2019-10-20 23:30 | NUR ---
PATIENT WAS LAYING IN RECLINER IN DAYROOM AND THIS NURSE HAD JUST REPOSITIONED PATIENT IN RECLINER AND SAT HIM UP AND APPLIED DICLOFENAC CREAM TO HIS BACK AND GAVE HIM HIS HS MEDS BY MOUTH CRUSHED IN APPLESAUCE. LAPBUDDY WAS REPOSITIONED AND WAS SNUG BUT NOT TOO TIGHT OR TOO LOOSE. PATIENT WAS PLACED AGAIN IN RECLINED POSITION IN RECLINER AND WHEELS WERE IN LOCKED POSITION. PATIENT WAS CALM, DROWSY AND CLOSED HIS EYES TO REST. THIS NURSE WENT TO PUT THE MED CART AWAY AND HAD JUST CAME OUT OF MED ROOM AND WAS SAT DOWN AT COMPUTER FACING DAY ROOM WHERE PATIENT WAS RECLINING. I HEARD PATIENT YELL. I RAN OVER AND FOUND THE PATIENT ON THE LEFT SIDE OF THE RECLINER ON THE FLOOR AND RECLINER HAD NOT MOVED. HIS HEAD AND NECK WERE UP OFF THE FLOOR. HE WAS CURSING AND YELLED TO HELP HIM UP. ANOTHER RN, BENY CAMILO, RAN OVER AT SAME TIME TOO AND WE ASSESSED ROM, AND CHECKED FOR ANY BLEEDING OR LACERATIONS. WE STOOD PATIENT UP AND WE WALKED HIM BACK TO HIS ROOM WITH A NURSE HOLDING HIM ON EACH SIDE. HE WAS ABLE TO WALK WITHOUT DIFFICULTY. HE WAS A/0 X 1 AND TALKING DISORGANIZED SPEECH WHICH IS HIS NORMAL STATUS. HE WASN'T ABLE TO REPORT IF HE WAS HAVING ANY PAIN. HEAD TO TO ASSESSMENT COMPLETED. PUPILS SMALL AND SLUGGISH BUT EQUAL AND REACTIVE TO LIGHT. FIRM PHARMACY SPECIALIST TO BILATERAL HANDS. FULL ROM TO ALL EXTREMITIES. RIGHT UPPER LATERAL LIP BRUISED WITH SOME DROOPING OBSERVED TO LOWER LIP. ALL EXTREMITIES AND BONES PALPATED. NO GRIMACING OR S/S OF PAIN OBSERVED DURING THIS ASSESSMENT. VSS. 157/76, 71 HR, 12 RESP, 99.1 TEMP, 95% O2 RA. OLD BRUISE OBSERVED TO LEFT PELVIC BONE, LIGHT YELLOW IN COLOR. ICE APPLIED TO UPPER LIP BRUISING. DR. GUADARRAMA NOTIFIED VIA PHONE. ANDRÉS SCHMIDT, NOTIFIED VIA PHONE IN WHICH NURSE REQUESTED ASSESSMENT. ANDRÉS SCHMIDT, ARRIVED TO UNIT WITHIN [address] ORDER OB[address] WITHOUT CONTRAST TO HEAD, XRAY OF RIGHT FOREARM AND RIGHT HUMERUS. RADIOLOGY CALLED STAT. CODE STROKE PAGED. , ANTONIETA, AND DAUGHTER, MICHAEL, BOTH DPOAS, WERE CALLED, NO ANSWER, MESSAGE LEFT AT 2215. BOTH CALLED AT 2224, NOTIFIED OF FALL AND RADIOLOGY ORDERS OBTAINED. NOTIFIED THAT THEY WOULD BE CALLED SOON RESULTS WERE OBTAINED. ALSO NOTIFIED THAT DEPENDING ON RESULTS OBTAINED, PATIENT MAY NEED TO BE MOVED TO MEDICAL FLOOR. BOTH VOICED UNDERSTANDING. CALLED BOTH TO NOTIFY THEM OF RADIOLOGY REPORTS OF NO FX TO RIGHT ARM BUT DID SHOW HEMATOMAS TO BRAIN ON CT. FAMILY NOTIFIED THAT PATIENT IS BEING MOVED TO ICU BUT IS STILL RESPONDING AT HIS NORMAL BEHAVIORAL STATUS. PATIENT WAS STILL TALKING AND RESISITIVE TO INCONTINENT CARES. ICU WAS NEEDING TO KNOW IF FAMILY WAS WANTING TO PURSUE INVASIVE TREATMENT. EXPLAINED TO THEM POSSIBLE STROK REPERCUSSIONS AND HOW IT COULD AFFECT PATIENT IF INVASIVE TREATMENT WAS PURSUED OR NOT PURSUED. WAS AWAITING CALL BACK FROM THEM AFTER THEY WERE ABLE TO SPEAK WITH OTHER FAMILY WHEN A CALL WAS RECEIVED STATING THAT HEMATOMAS WERE STABLE AND SOME APPEARED OLD IN NATURE. MD IS WANTING TO WAIT UNTIL MORNING TO REPEAT CT SCAN TO CLARIFY ACUITY. FAMILY NOTIFIED THAT PATIENT WAS MOVED TO ROOM 241 AND THEY COULD CALL IN THE MORNING WITH THEIR DECISION ON PLAN OF CARE. ALSO LET THEM KNOW THAT ICU NURSE STU WOULD CALL THEM TONIGHT AND DISCUSS CARE IN MORE DETAIL. FAMILY APPRECIATIVE AND THANKED ME FOR HELPING ANSWER THEIR QUESTIONS AND KEEPING IN CLOSE COMMUNICATION. REPORT GIVEN TO NURSE STU BY PHONE AND SHE STATED SHE WOULD CONTACT FAMILY TONIGHT. PATIENT SENT BY BED WITH MICROFILM TECHNICIAN, TEMPLATE CUTTER AND PERSONAL BELONGINGS TO ICU. DR. GUADARRAMA NOTIFIED OF PATIENT TRANSFER TO ICU WHOM WILL UPDATE DR. ISRAEL IN AM.
--- NOTE | 2019-10-20 23:45 | NUR ---
RECEIVED CALL FROM STAFF AT APPROXIMATELY 2200 THAT PT HAD FALLEN. ON ARRIVAL TO UNIT TO COMPLETE POST FALL HUDDLE, STRUCTURAL STEEL ERECTOR WAS ASSESSING PT AND ORDER PLACED FOR CT OF THE HEAD. PT AT BASELINE PER STAFF. BRUISING AND SWELLING NOTED TO RIGHT SIDE OF PATIENT'S FACE. PT TAKEN TO CT AND XRAY FOR ORDERED DIAGNOSTICS. CT RESULTED AND NOTED AT 2307 WITH SUBSEQUENT CODE STROKE ACTIVATED BY THIS DIRECTOR OF REIMBURSEMENT. STRUCTURAL STEEL ERECTOR CALLED AND UPDATED WITH STAT CONSULTS AND ORDERS. CONSULT TO CALLED IN STAT WITH CALL BACK AND ORDERS RECEIVED. PT EMERGENTLY TRANSFERRED TO ICU FOR CONTINUATION OF CODE STROKE ORDERS AND OBSERVATION.
== END 2019-10-20 23:34 | disposition critical access hospital (66) | DRG 884 ==
LOC: ER 13:25 → EROBS 15:29 → SBH 15:29
PROVIDERS: Emergency Medicine Emergency Medical Services; Internal Medicine; Nurse Practitioner Family; Psychiatry & Neurology Psychiatry; ADMIT Psychiatry & Neurology Psychiatry
DX: F03.91 Unspecified dementia, unspecified severity, with behavioral disturbance (principal); N39.0 Urinary tract infection, site not specified; E46 Unspecified protein-calorie malnutrition; Z68.1 Body mass index [BMI] 19.9 or less, adult; F32.9 Major depressive disorder, single episode, unspecified; I10 Essential (primary) hypertension; F17.210 Nicotine dependence, cigarettes, uncomplicated; E55.9 Vitamin D deficiency, unspecified; M54.5 Low back pain; Z66 Do not resuscitate; F51.04 Psychophysiologic insomnia; R10.9 Unspecified abdominal pain; D64.9 Anemia, unspecified; F41.1 Generalized anxiety disorder; Z91.81 History of falling; Z79.2 Long term (current) use of antibiotics; Z79.899 Other long term (current) drug therapy; Z91.83 Wandering in diseases classified elsewhere
CPT/HCPCS: 10880

== ENCOUNTER 2019-10-20 23:35 | Inpatient (IN) | payer OTHER ==
[~2019-10-20 23:35] MED LIST: ACIDOPHILUS1 EAC4 PO; ARICEPT10 M1 PO; BANOPHEN25 M1 PO; CHOLECALCIFEROL1 GM PO; DEPAKOTE SPRIN125 MG PO; FLOMAX0.4 MG PO; MUCINEX D ER 61 EACH PO; NAMENDA 10 MG T10 MG PO; OLANZAPINE ODT5 MG PO; OLANZAPINE10 M2 IM; RISPERIDONE 1 MG1 MG PO; SEROQUEL 50 MG50 MG PO; TRAZODONE HCL100 MG PO; TRAZODONE HCL50 MG PO; TRIPLE ANTIBIOT28 G2 TOP; TYLENOL325 MG PO; VOLTAREN GEL 1100 G2 TOP
[2019-10-20 23:51] VITALS: BP 146/76
[2019-10-20 23:56] VITALS: BP 152/75
[2019-10-20 23:59] LABS: ABSOLUTE NEUTROPHILS 6.6 thou/uL (1.4-8.2); BASOPHILS 0.9 % (0.0-2.0); EOSINOPHILS 0.5 % (0.0-3.0); HEMATOCRIT 41.5 % (42.0-52.0); HEMOGLOBIN 13.5 gm/dL (14.0-18.0); MCH 31.9 pg (26.0-34.0); MCHC 32.5 g/dL (28.0-37.0); MCV 98.1 fL (80.0-100.0); MONOCYTES 6.8 % (1.0-8.0); PLATELET COUNT 257 thou/uL (150-400); POLYS 78.8 % (36.0-66.0); RBC 4.23 mil/uL (4.50-6.00); RDW 14.2 % (10.5-14.5); WBC 8.4 thou/uL (4.0-11.0)
[2019-10-21] VITALS (46 sets, daily range): BP systolic 95–161; BP diastolic 43–83
--- NOTE | 2019-10-21 00:10 | NUR ---
PATIENT WAS LAYING IN RECLINER IN DAYROOM AND THIS NURSE HAD JUST REPOSITIONED PATIENT IN RECLINER AND SAT HIM UP AND APPLIED DICLOFENAC CREAM TO HIS BACK AND GAVE HIM HIS HS MEDS BY MOUTH CRUSHED WITH APPLESAUCE. LAPBUDDY WAS REPOSITIONED AND WAS SNUG BUT NOT TOO TIGHT OR TOO LOOSE. PATIENT WAS PLACED AGAIN IN RECLINED POSITION IN RECLINER AND WHEELS WERE IN LOCKED POSITION. PATIENT WAS CALM AND CLOSED HIS EYES TO REST. THIS NURSE WENT TO PUT MED CART AWAY AND HAD JUST CAME OUT OF MED ROOM AND WAS SAT DOWN AT COMPUTER TO RECORD SOMETHING WHEN I HEARD A PATIENT YELL. I RAN OVER AND FOUND THE PATIENT ON THE LEFT SIDE OF THE RECLINER ON THE FLOOR. HIS HEAD AND NECK WERE UP OFF THE FLOOR. HE WAS CURSING AND YELLED TO HELP HIM UP. ANOTHER RN, BENY CAMILO RAN OVER AT SAME TIME TOO AND WE ASSESSED ROM AND CHECKED FOR BLEEDING OR CUTS. WE STOOD PATIENT UP AND HE WALKED BACK TO HIS ROOM WITH A NURSE ON EACH SIDE OF HIM. HE WAS A/O AND ORIENTED X1 AND TALKING WHICH IS HIS NORMAL STATUS. HE WASN'T ABLE TO ANSWER WHERE OR IF HE WAS HURTING. HEAD AND TOE ASSESSMENT WAS DONE. PATIENT DID NOT GRIMACE WHEN PALPATED AND PUSHED ON DIFFERENT AREAS TO ASSESS FOR PAIN. NO GRIMACING. VSS STABLE 157/76 71 12 99.1 02 95 % RA. OLD BRUISE AT LEFT PELVIC BONE LIGHT YELLOW. PATIENT RIGHT LIP BRUISED AND SWOLLEN. ICE APPLIED. RIGHT CLAVICAL LOOKS DISLOCATED BUT PATIENT DOES NOT RESPOND IN PAIN OR GRIMACING WHEN PUSHED ON. DR GUADARRAMA NOTIFIED AND ROXANA CELESTE CARD BOXER WAS CALLED TO ASSESS STAT. ORDERS RECEIVED FOR RIGHT HUMERUS, FOREARM XRAY AND CT OF HEAD D/T SLIGHT DROOPING OF FACE/MOUTH ON RIGHT SIDE. CT AND RADIOLOGY CALLED STAT AND CODE STROKE TEAM PAGED. CALLED AND , ANTONIETA, DPOA AND NO ANSWER SO CALLED MICHAEL SAUCEDA, 2ND DPOA AND LEFT MESSAGE AROUND 2214. MICHAEL CALLED BACK WITH ANTONIETA AT AROUND 2224. NOTIFIED THEM OF FALL AND CT AND XRAY ORDERS AND LET THEM KNOW I WOULD CALL SOON RESULTS CALLED. LET THEM KNOW THAT DEPENDING ON RESULTS OF TESTS, HE MAY NEED TO BE MOVED TO A MEDICAL FLOOR. THEY UNDERSTOOD. CALLED TO LET THEM KNOW OF RESULTS THE THAT NO FRACTURE TO RIGHT ARM BUT DID SHOW A COUPLE OF HEMORHAGING IN BRAIN. LET THEM KNOW THAT HE WAS BEING MOVED TO ICU AND THAT PATIENT WAS STILL RESPONDING AT HIS NORMAL BEHAVIORAL STATUS. HE WAS TALKING AND STILL RESISTIVE TO INCONTINENCE CARES. LET THEM KNOW THAT AT THAT TIME THE ICU WAS NEEDING TO KNOW IF FAMILY WANTED TO GO AHEAD WITH SURGERY TONIGHT OR LET NATURE TAKE IT'S COURSE. EXPLAINED TO THEM POSSIBLE STROKE REPERCUSSIONS AND HOW IT COULD AFFECT PATIENT IF SURGERY DONE OR NOT DONE. WAS AWAITING CALL BACK FROM THEM AFTER THEY TALKED WITH FAMILY REAL QUICK WHEN RECIEVED CALL THAT REPORTS ARE SHOWING THAT BLEEDS MAY BE OLD AND THINKS WAITING TILL IN MORNING AND DOING ANOTHER CT SCAN WOULD BE MORE BENEFICIAL FOR PATIENT AND TO CALL AND LET PATIENT KNOW THEY CAN CALL IN MORNING WITH THEIR DECISION. CALLED AND SPOKE WITH LANCE. LET THEM KNOW THE ABOVE. LET THEM KNOW PATIENT HAD BEEN MOVED TO ICU ROOM 241 AND GAVE THEM DIRECT NUMBER TO THE NURSE'S STATION TO CALL WITH DECISION. ALSO LET THEM KNOW THAT I WOULD HAVE HIS NURSE STU CALL THEM TONJULIANNE AND DISCUSS THIS MORE IN DETAIL. THEY WERE VERY APPRECIATIVE AND THANKED [facility] FOR HELPING ANSWER THEIR QUESTIONS KEEPING IN CLOSE COMMUNICATION. SPOKE WITH NURSE PERAZA IN ICU AND SHE SAID SHE WOULD CONTACT THEM [facility]. PATIENT SENT BY BED WITH SCHOOL SUPERINTENDENT AND HOGSHEAD STOCK CLERK AND ALL BELONGINGS SENT TO ICU. FAMILY WAS CALM AND ASKED APPROPRIATE QUESTIONS. CALLED THEM BACK TO LET THEM KNOW THAT THE XRAY OF THE RIGHT ARM
[2019-10-21 00:11] LABS: ANION GAP 6 mmol/L (7-16); BUN 29 mg/dL (7-18); CHLORIDE 106 mmol/L (98-107); CO2 33 mmol/L (21-32); GLUCOSE 115 mg/dL (74-106); POTASSIUM 4.3 mmol/L (3.5-5.1); SODIUM 145 mmol/L (136-145)
[2019-10-21 00:17] LABS: APTT 29.1 Seconds (24.5-32.8); INR 1.1; PROTIME 11.2 Seconds (9.3-11.4)
[2019-10-21 00:20] LABS: TROPONIN-I <0.06 ng/mL (<0.06)
[2019-10-21 04:30] LABS: URINE BILIRUBIN NEGATIVE (Negative); URINE BLOOD 3+ (Negative); URINE CLARITY CLEAR; URINE COLOR YELLOW; URINE GLUCOSE-RANDOM* NEGATIVE (Negative); URINE KETONES 1+ (Negative); URINE LEUKOCYTES NEGATIVE (Negative); URINE NITRITE NEGATIVE (Negative); URINE PROTEIN (DIPSTICK) NEGATIVE (Negative); URINE SPECIFIC GRAVITY 1.025 (1.005-1.035); URINE UROBILINOGEN 0.2 E.U./dl (0.2-1.0)
[2019-10-21 04:39] LABS: BACTERIA 1-9 Few /HPF (None Seen); CASTS None Seen /LPF (None Seen); CRYSTALS None Seen /LPF (None Seen); MUCUS 4-6 Moderate strn/LPF (None Seen); SQUAMOUS 0-3 Few /LPF (0-3); URINE RBC >20 Many /HPF (0-2); URINE WBC 0-5 Rare /HPF (0-5)
--- NOTE | 2019-10-21 06:00 | NUR ---
PT ARRIVED IN ICU FROM [facility] AT 2335 LAST NIGHT. PT RESTLESS, AGITATED, AND HIGHLY IMPULSIVE UPON ARRIVAL. NEURO CHECKS PERFORMED Q1H, BUT SOME AREAS WERE DIFFICULT TO ASSESS D/T PT'S BASELINE MENTATION. PT DOES NOT FOLLOW ANY COMMANDS OR ANSWER ANY QUESTIONS. PT HAS DYSARTHRIA AND AT TIMES HAS DISORGANIZED SPEECH, BUT NOTHING IN RESPONSE TO QUESTIONS. PT BECAME MORE IMPULSIVE. Hillary CELESTE WAFER ABRADING MACHINE TENDER CALLED FOR RESTRAINT ORDER, BUT WAFER ABRADING MACHINE TENDER SAID TO GIVE PT ZYPREXA IM FIRST AND SEE IF THAT HELPS CALM PT. ZYPREXA DID HELP CALM PT AND RESTRAINTS WERE NO LONGER NEEDED. REPEAT CT WILL BE PERFORMED LATER THIS MORNING. WILL CONTINUE TO MONITOR. AFTER SETTLING PT IN ICU, PT'S DAUGHTER, MICHAEL, CONTACTED WITH AN UPDATE ON PT.
--- NOTE | 2019-10-21 08:15 | NUR ---
chart review, pt resting in bed eyes closed. pt transferred down from [facility]. no family present during visit. will cont following as needed for dc needs. pt lives at [facility]. facility assist with adls, medication and meals. noted he is able to walk with assistance and has wheel chair. incont urine. will cont following as needed for dc needs. called omero, no answer.
--- NOTE | 2019-10-21 10:23 | NUR ---
RECEIVED CALL FROM AMBER FROM [facility] IS ON SERVICE WITH THEM WELLNESS COORDINATOR FAXED H/P TO [facility]. DP TO FOLLOW.
--- NOTE | 2019-10-21 11:14 | NUR ---
PATIENT DROWSY, RESTLESS WHEN STIMULATED. VITALS STABLE AND NO SIGNS OF DISTRESS. DR. HAMILTON CONFERENCED WITH PATIENT'S SPOUSE AND PLANS TO GET MEDICAL RECORDS FROM [facility] GIVEN THAT THE PATIENT WAS ADMITTED THERE PREVIOUSLY WITH A FALL. MEDICAL RECORD REQUEST FAXED TO THAT FACILITY. NEUROSURGEON CONSULT CANCELLED BY DR. HAMILTON. WILL CONTINUE WITH POC.
--- NOTE | 2019-10-21 15:35 | NUR ---
LAST MEDICAL RECORDS FROM [facility] FOR 2016 ONLY,PER THEIR MED RECORDS DEPT.--VW
--- NOTE | 2019-10-21 18:15 | NUR ---
THIS EVENING SANKET GELATIN PLANT SUPERVISOR NOTIFIED ME THAT SHE HAD RECEIVED A CALL FROM [facility] MED RECORDS AND STATED THAT RECENT RECORDS WERE FROM 2017. I OBTAINED A NEW CONSENT AND REFAXED THE REQUEST FOR THE 2017 RECORDS FROM [facility], COPY OF FAX PLACED IN THE CHART.
[2019-10-22] VITALS (28 sets, daily range): BP systolic 96–179; BP diastolic 51–97
--- NOTE | 2019-10-22 02:35 | NUR ---
Care assumed at this time. Pt remains very confused, moves all extremities but not to command. At 0227 pt had triplet PVC and then 13 beats of SVT with rate 160-180. Pt back in sinus rhythm.
--- NOTE | 2019-10-22 03:16 | NUR ---
Pt continues to have rapid heart rate 140's to 180's, sinus tach - SVT. Nurse practioner notified at 0300 and orders received for amiodorone bolus and gtt. Will also consult cardiology per orders.
[2019-10-22 05:19] LABS: HEMATOCRIT 43.6 % (42.0-52.0); MCH 31.7 pg (26.0-34.0); MCHC 32.1 g/dL (28.0-37.0); MCV 98.6 fL (80.0-100.0); RBC 4.42 mil/uL (4.50-6.00); RDW 14.4 % (10.5-14.5); WBC 7.4 thou/uL (4.0-11.0)
[2019-10-22 05:54] LABS: CALCIUM 9.1 mg/dL (8.5-10.1); POTASSIUM 4.2 mmol/L (3.5-5.1)
--- NOTE | 2019-10-22 08:14 | NUR ---
Assumed care at 0700. PT appears drowsy but constantly moves extremities in bed. He does not follow commands. PT on amiodarone gtt at 1 mg/min. PT's heart rate appears sinus rhythm dipping into the 50s. Cardiology PIN OR CLIP FASTENER Betsey on unit and made aware of heart rate. She told nurse to titrate amiodarone gtt to 0.5 mg/min to see how his rate improves, however if he remains bradycardiac nurse may shut off amiodarone gtt. Nurse verbalized understanding and titrated the amiodarone gtt down to 0.5 mg/min at 0800. Fall precautions in place. Call light within reach. Nurse will continue to monitor.
--- NOTE | 2019-10-22 09:15 | 2DMMODE ---
[facility] [address] [place] [address] 2 D/M-MODE ECHOCARDIOGRAM Name: IRVING SAUCEDA Room #: 241-P ADM IN M.R.#: [id number] Admission: 10/20/19 Attend Phys: Antony Li MD Discharge: Date of : [birth year] Report #: [id number] THIS REPORT FOR: cc: LENA - No family physician/PCP LENA - No family physician/PCP Nathan Chatman MD [facility] ~ APPROVED REPORT Study performed: 10/22/2019 08:27:17 EXAM: Comprehensive 2D, Doppler, and color-flow Echocardiogram Patient Location: ICU Room #: 241 Status: routine BSA: 1.76 HR: 67 bpm BP: 151/71 mmHg Rhythm: NSR Other Information Study Quality: Technically DifficultTechnically Limited Technically limited study due to uncooperative patient, inability to position patient. Indications Atrial Fibrillation Hypertension/HDD Aortic Valve AoV Peak Mike.: 1.74 m/s AO Peak Gr.: 12.27 mmHg LVOT Max P.43 mmHg LVOT Max V: 0.93 m/s Mitral Valve E/A Ratio: 0.9 MV Decel. Time: 229.71 ms MV E Max Mike.: 0.75 m/s MV A Mike.: 0.88 m/s MV PHT: 66.61 ms IVRT: 124.57 ms Pulmonary Valve PV Peak Mike.: 1.34 m/s PV Peak Gr.: 7.18 mmHg [facility] [address] [place] [address] 2 D/M-MODE ECHOCARDIOGRAM Name: IRVING SAUCEDA Room #: 241-P ADM IN M.R.#: [id number] Admission: 10/20/19 Attend Phys: Antony Li MD Discharge: Date of : [birth year] Report #: [id number] Pulmonary Vein P Vein S: 0.48 m/s P Vein A: 0.35 m/s P Vein D: 0.35 m/s P Vein A Dur.: 101.5 msec P Vein S/D Ratio: 1.37 Tricuspid Valve TR Peak Mike.: 3.02 m/s TR Peak Gr.: 36.55 mmHg PA Pressure: 42.00 mmHg Left Ventricle The left ventricle is normal size. There is normal LV segmental wall motion. There is normal left ventricular wall thickness. The left ventricular systolic function is normal. The left ventricular ejection fraction is within the normal range. LVEF is 55-60%. Mild diastolic dysfunction is present (impaired relaxation pattern). Right Ventricle The right ventricle is normal size. The right ventricular systolic function is normal. Atria The left atrium size is normal. The right atrium size is normal. Aortic Valve The aortic valve is mildly calcified. No aortic regurgitation is present. There is no aortic valvular stenosis. Mitral Valve The mitral valve is normal in structure. Mild mitral regurgitation. No evidence of mitral valve stenosis. Tricuspid Valve The tricuspid valve is normal in structure. There is mild tricuspid regurgitation. Estimated PAP 40 mmHg. There is mild pulmonary hypertension. Pulmonic Valve The pulmonary valve is normal in structure. There is no pulmonic valvular regurgitation. Great Vessels The aortic root is normal in size. IVC is normal in size and collapses >50% with inspiration. [facility] [place] [address] 2 D/M-MODE ECHOCARDIOGRAM Name: IRVING SAUCEDA Room #: 241-P ADM IN .R.#: [id number] Admission: 10/20/19 Attend Phys: Antony Li MD Discharge: Date of : [birth year] Report #: [id number] Pericardium There is no pericardial effusion. <Conclusion> Technically limited study The left ventricular systolic function is normal. There is normal LV segmental wall motion. LVEF is 55-60%. Mild diastolic dysfunction The aortic valve is mildly calcified. No aortic regurgitation or significant stenosis The mitral valve is normal in structure. Mild mitral regurgitation. There is mild tricuspid regurgitation. Estimated pulmonary artery pressure of 40 mmHg. There is no pericardial effusion. <ELECTRONICALLY SIGNED> By: Nathan Chatman MD, [facility] 10/22/1914 3 Nathan Chatman MD, FACC /INF
--- NOTE | 2019-10-22 17:35 | NUR ---
Report called to Marine on CCU. She verbalized understanding. PT will be transported to [facility] via nurse escort. is present and is aware of transfer. Nurse will continue to monitor.
--- NOTE | 2019-10-22 18:37 | NUR ---
PT TRANSFERED FROM ICU 1814. PT ALERT ONLY, UNINTELLIGIBLE WORDS, ATTEMPTING TO CLIMB OUT OF BED. BILATERAL SOFT MITS/WRIST RESTRAINTS IN PLACE. REPOSITIONED PT IN BED. BED LOCKED AND ALARM SET. PT CLOSE TO NURSES STATION. PER ASTROPHYSICS PROFESSOR REPORT, PT IS IMPULSIVE AND ANXIOUS. PPN 80ML/HR HUNG IN ICU. 2L NASAL CANNULA 98%. SIMMS IN PLACE WITH TED COLOR URINE. 2/2 PULSES. NSR ON TELE. ASPIRATION RISK NPO. CLOSE TO [facility] FOR OVERSITE.
--- NOTE | 2019-10-23 04:46 | NUR ---
ASSUMED PT CARE AT 1900. PT IS CONFUSED AND IN RESTRAINTS. NO FAMILY AT BEDSIDE. PT IS SEEN BY PHYSICIAN. PT IS NOW PALLIATIVE/COMFORT CARE PER PHYSICIAN. PT IS CONFUSED AND DISORIENTED. MONITOR PATIENTS THROUGHOUT THE NIGHT. CONTINUE TO MONITOR PT.
[2019-10-23 05:22] VITALS: BP 105/72
--- NOTE | 2019-10-23 08:11 | NUR ---
Followup: chart reviewed and pt noted to now be palliative/comfort care. Defer further nutrition reassessment unless consulted.
--- NOTE | 2019-10-23 08:13 | EKG ---
[facility] [place] [address] [address] [place] [address] ELECTROCARDIOGRAM REPORT Name: IRVING SAUCEDA Room #: 216-P ADM IN M.R.#: [id number] Admission: 10/20/19 Attend Phys: Antony Li MD Discharge: Date of : [birth year] Report #: [id number] THIS REPORT FOR: cc: LENA - [place] family physician/PCP LENA - [place] family physician/PCP Nathan Chatman MD [facility] ~ THIS REPORT FOR: //name// [facility] Test Date: 2019-10-22 Test Time: 09:00:50 Pat Name: IRVING SAUCEDA Department: Room: 216 Gender: M Driver Utility Worker: Kenyetta FAUSTIN : 1930 Requested By: Betsey Hall Order Number: [id number] MD: Nathan Chatman Measurements Intervals Warren Rate: 65 P: 62 MS: 139 QRS: 57 QRSD: 92 T: 74 QT: 414 QTc: 431 Interpretive Statements Sinus rhythm No significant abnormality Compared to ECG 09/30/2019 14:10:20 No significant changes Electronically Signed On 10-23-2019 8:12:41 LOCOMOTIVE ENGINEER ELECTRIC by Nathan Chatman [email or web address] <ELECTRONICALLY SIGNED> By: Nathan Chatman MD, [facility] 10/23/1912 9 9 Nathan Chatman MD, [facility] /EPI
--- NOTE | 2019-10-23 11:41 | NUR ---
FAXED REFERRAL TO [facility] SPOKE WITH CARLOS A IN ADM SHE RECEIVED AND GAVE REFERRAL TO THEIR MD TO DO PEER TO PEER. DP TO FOLLOW.
--- NOTE | 2019-10-23 13:33 | NUR ---
Consult rec'd for hospice house eval per Dr. Taylor. Pt is a DNR and on comfort measures at this time. Structural Steel Erection Supervisor visited with the pt's and 2 dtrs at bedside this morning. Support provided and hospice house options, eval and possible transfer discussed. They are agreeable to referral to Hospice House and agreeable to the [facility] location as it is closer to home for them then [facility]. Outside the hospital DNR from given to the pt's spouse/dpoa for signature. The dc partner integration planner faxed the referral to intake at [facility] and loan underwriter confirmed the request with intake. A peer to peer call from the attending was arranged. They will advise on acceptance and bed availability this afternoon. Care team updated. Pt is non responsive at this time and recieving iv ativan for restlessness. Family at bedside. Declined miguel referral. The family has alerted their other dtr who is in [place]. Will remain available for emotional support.
--- NOTE | 2019-10-23 15:47 | NUR ---
ASSESSMENT CHARTED. PT RECEIVED PRN ATIVAN THIS AM FOR RESTLESSNESS WHICH WAS EFFECTIVE. MORPHINE PRN GIVEN FOR AIR HUNGER. FAMILY AT THE BEDSIDE UPDATED ON PT'S PLAN OF CARE. DR GUADARRAMA AND DR LEWIS AWARE. PT APPEARS COMFORTABLE AT THIS TIME. COMFORT MEASURES PROVIDED. WAITING A BED IN HOSPICE HOUSE.
[2019-10-23 16:30] VITALS: BP 98/64
--- NOTE | 2019-10-24 09:04 | NUR ---
Spoke with [facility] this am. Pt on waiting list. No bed anticipated today. They will call if one opens up. Family at bedside. Will remain available for emotional support and transfer as indicated.
[2019-10-24 16:57] VITALS: BP 112/55
--- NOTE | 2019-10-24 17:08 | NUR ---
[facility] called and they have a bed for the pt this evening. family and care team updated. [facility] arranged for approx 7pm transport. Nursing has called report and family heading out to the facility to do paperwork. The attending and Dr. Taylor notified.
--- NOTE | 2019-10-24 17:55 | NUR ---
PT ON COMFORT CARE. COMFORT MEASURES PROVIDED. PRN PAIN MED AND ATIVAN PROVIDED NEEDED. FAMILY UPDATED ON PT'S PROGRESS. ORDERS GIVEN TO TRANSFER PT TO HOSPICE HOUSE. REPORT CALLED IN TO THE CHARGE NURSE.
== END 2019-10-24 18:03 | disposition hospice, home (50) | DRG 86 ==
LOC: ICU 23:35 → 2N 23:35
PROVIDERS: Nurse Practitioner; ADMIT Hospitalist
DX: S06.6X0A Traumatic subarachnoid hemorrhage without loss of consciousness, initial encounter (principal); E87.0 Hyperosmolality and hypernatremia; I47.1 Supraventricular tachycardia; G93.40 Encephalopathy, unspecified; W18.39XA Other fall on same level, initial encounter; Y93.89 Activity, other specified; Y92.89 Other specified places as the place of occurrence of the external cause; Y99.8 Other external cause status; F03.90 Unspecified dementia, unspecified severity, without behavioral disturbance, psychotic disturbance, mood disturbance, and anxiety; I48.91 Unspecified atrial fibrillation; F32.9 Major depressive disorder, single episode, unspecified; I10 Essential (primary) hypertension; G47.00 Insomnia, unspecified; F17.210 Nicotine dependence, cigarettes, uncomplicated; F41.1 Generalized anxiety disorder; E55.9 Vitamin D deficiency, unspecified; Z66 Do not resuscitate; I48.0 Paroxysmal atrial fibrillation; R41.0 Disorientation, unspecified; Z51.5 Encounter for palliative care; Z79.899 Other long term (current) drug therapy
CPT/HCPCS: 10078; 10081; 10194